=== PATIENT | female | born 1990 | race Caucasian/White ===

== ENCOUNTER → 2019-09-04 | Outpatient (CLI) | payer BC ==
--- NOTE | 2019-09-05 01:21 | REP ---
REASON: anatomy. PRIORS: None. Multiple ultrasonographic images of the gravid uterus show a single living intrauterine gestation in the cephalic presentation. Doppler interrogation of the heart shows a heart rate of 156 beats per minute. The placenta is anterior and not low lying. The subjective amniotic fluid volume is within normal limits. The cervix measures 4.3 cm in length and is closed. Evaluation of the maternal adnexal spaces shows no abnormalities. anatomical structures seen as unremarkable are as follows: Thalami, cavum septum pellucidum, cerebellum, cisterna magna, cerebral ventricles, upper lip, left ventricular outflow tract, cord insertion, three-vessel umbilical cord, spin, and upper and lower extremities. The anatomic structures suboptimally visualized are as follows: Four-chamber heart, right ventricular outflow tract, kidneys, urinary bladder, and stomach. CHART: BPD 4.0 cm = 18 weeks 1 day HC 16.1 cm = 18 weeks 6 days AC 14.2 cm = 19 weeks 4 days FL 2.8 cm = 18 weeks 3 days The estimated weight is 268 grams, which is at the 55th percentile for an 18-week 5-day gestational age. IMPRESSION: Single living intrauterine gestation, as described above, with an estimated gestational age of 18 weeks 5 days via composite criteria and an estimated date of delivery of 01/31/2020 by today's exam. No anomalies were detected; however, I recommend a followup examination to better image those structures not well seen today, as described above.
== END ==
LOC: M WHC 11:08
PROVIDERS: ATTEND Advanced Practice Midwife
DX: Z36.89 Encounter for other specified antenatal screening (principal); Z3A.18 18 weeks gestation of pregnancy

== ENCOUNTER → 2019-09-10 | Outpatient (CLI) | payer BC | LOC: M WHC 15:32 | PROVIDERS: ATTEND Advanced Practice Midwife | DX: Z53.9 Procedure and treatment not carried out, unspecified reason (principal); Z34.92 Encounter for supervision of normal pregnancy, unspecified, second trimester ==

== ENCOUNTER → 2019-09-25 | Outpatient (CLI) | payer BC ==
[~2019-09-25] MED LIST: ACET1TAB55 PO; FAMO20TA PO; FIORCAP3 PO; IBUP80TA PO; VALT500T PO
--- NOTE | 2019-09-25 11:26 | REP ---
REASON: Followup anatomy. The prior examination of 09/04/2019 failed to optimally visualize four-chamber heart, right ventricular outflow tract, kidneys, urinary bladder and stomach. Multiple ultrasonographic images of the gravid uterus shows a single living intrauterine gestation in a transverse head to the maternal left position. Doppler interrogation of the heart shows a heart rate of 143 beats per minute. The placenta is anterior and not low lying. The subjective amniotic fluid volume is within normal limits. The cervix measures 3.6 cm in length and is closed. Evaluation of the maternal adnexal spaces showed no abnormalities. BPD 5.2 cm = 21 weeks 6 days HC 19.7 cm = 21 weeks 6 days AC 16.9 cm = 21 weeks 6 days FL 3.8 cm = 22 weeks 0 days The estimated weight is 461 grams, which is at the 43rd percentile for a 96-wqcd-1-day gestational age. The stomach, kidneys, and urinary bladder were seen to be within normal limits today. The four-chamber heart and right ventricular outflow tract were still seen suboptimally due to lie. IMPRESSION: Single living intrauterine gestation as described above with an estimated gestational age of 20 weeks 4 days via composite criteria and an estimated date of delivery of 02/01/2020 by today's exam. Followup is recommended to optimally visualized four-chamber heart and right ventricular outflow tract.
== END ==
LOC: M WHC 08:09
PROVIDERS: ATTEND Advanced Practice Midwife
DX: Z34.92 Encounter for supervision of normal pregnancy, unspecified, second trimester (principal); Z3A.20 20 weeks gestation of pregnancy

== ENCOUNTER → 2019-11-16 | Outpatient (CLI) | payer BC ==
[2019-11-16 13:07] LABS: BASO % 0.2 % (0.0-1.0); EOS % 0.3 % (0.0-3.0); HEMATOCRIT 36.8 % (36.0-47.0); HEMOGLOBIN 11.8 g/dl (12.0-15.5); LYMPH # 1.3 10^3/uL (1.5-5.0); LYMPH % 11.9 % (24.0-44.0); MEAN CORPUSCULAR HEMOGLOBIN 27.9 pg (27.0-33.0); MEAN CORPUSCULAR HGB CONC 32.1 g/dl (32.0-36.5); MONO # 0.5 10^3/uL (0.0-0.8); MONO % 4.1 % (0.0-5.0); NEUTROPHILS % 82.9 % (36.0-66.0); PLATELET COUNT, AUTOMATED 235 10^3/uL (150-450); RED BLOOD COUNT 4.23 10^6/uL (4.00-5.40); WHITE BLOOD COUNT 10.9 10^3/uL (4.0-10.0)
== END ==
LOC: M PLALAB 09:09
PROVIDERS: ATTEND Advanced Practice Midwife
DX: Z34.83 Encounter for supervision of other normal pregnancy, third trimester (principal); Z3A.00 Weeks of gestation of pregnancy not specified

== ENCOUNTER → 2019-11-16 | Outpatient (CLI) | payer BC ==
--- NOTE | 2019-12-11 15:18 | REP ---
FOLLOW UP OBSTETRICAL ULTRASOUND CLINICAL: Follow up anatomical assessment. COMPARISON: 09/25/2019 TECHNIQUE: Transabdominal obstetrical ultrasound with color Doppler evaluation. FINDINGS: Ultrasound examination demonstrates single live intrauterine in breech presentation. motion was identified by technologist. Placenta noted anteriorly and grade 1 without evidence for placenta previa or abruption. Amniotic fluid volume is normal. Cervix measures 4.3 cm in length and appears closed. FINA equal 19.0 cm. heart rate 142 beats per minute. Age by current biometrical measurements 29 weeks 5 days. Estimated weight 1343 grams (28th percentile). Anatomical assessment demonstrates normal cisterna magna, cavum, thalamus, spine, stomach, kidneys/bladder, four chamber heart/cardiac ventricular outflow tract, three vessel cord/cold insertion, facial features, and extremities. IMPRESSION: Single live intrauterine in breech presentation demonstrating appropriate estimated weight and growth. In conjunction with prior examination, anatomical assessment is complete and normal. MTDD
== END ==
LOC: M WHC 08:01
PROVIDERS: ATTEND Advanced Practice Midwife
DX: O32.1XX0 Maternal care for breech presentation, not applicable or unspecified (principal); Z3A.29 29 weeks gestation of pregnancy

== ENCOUNTER → 2019-11-26 | Outpatient (CLI) | payer BC | LOC: M LAB 07:07 | PROVIDERS: ATTEND Advanced Practice Midwife | DX: Z34.82 Encounter for supervision of other normal pregnancy, second trimester (principal); Z3A.00 Weeks of gestation of pregnancy not specified ==

== ENCOUNTER → 2020-01-03 | Outpatient (REF) | payer BC ==
[~2020-01-03] MED LIST changes: -ACET1TAB55 PO; -IBUP80TA PO
== END ==
LOC: M SFHCWAGY 13:00
PROVIDERS: ATTEND Advanced Practice Midwife
DX: Z34.83 Encounter for supervision of other normal pregnancy, third trimester (principal)

== ENCOUNTER 2020-01-15 16:39 | Inpatient (IN) | payer BC ==
[~2020-01-15] VITALS: Ht 157.5 cm; Wt 100.2 kg
[2020-01-15 17:07] VITALS: BP 146/96
[2020-01-15] MEDS ORDERED: VALT500T PO (17:14)
[2020-01-15] MEDS ORDERED: FAMO20TA PO (17:14)
[2020-01-15] MEDS ORDERED: FIORCAP3 PO (17:20)
[2020-01-15 17:22] VITALS: BP 147/94
[2020-01-15] MEDS ORDERED: PERCOCET 5MG/325MG TAB PO ONE (18:00)
[2020-01-15 18:52] LABS: CREATININE,RANDOM URINE 20.4 MG/DL; TOTAL PROTEIN,RANDOM URINE 7.5 MG/DL (0.0-12.0)
[2020-01-15 19:08] LABS: HEMATOCRIT 33.8 % (36.0-47.0); HEMOGLOBIN 10.5 g/dl (12.0-15.5); MEAN CORPUSCULAR HEMOGLOBIN 25.5 pg (27.0-33.0); MEAN CORPUSCULAR HGB CONC 31.1 g/dl (32.0-36.5); PLATELET COUNT, AUTOMATED 210 10^3/uL (150-450); RED BLOOD COUNT 4.12 10^6/uL (4.00-5.40); WHITE BLOOD COUNT 9.5 10^3/uL (4.0-10.0)
[2020-01-15 19:35] LABS: ALT/SGPT 14 U/L (12-78); BILIRUBIN,TOTAL 0.6 MG/DL (0.2-1.0); GLOMERULAR FILTRATION RATE > 60.0 (>60); LDH LACTATE DEHYDROGENASE 182 U/L (84-246); URIC ACID 4.6 MG/DL (2.6-6.0)
[2020-01-15 20:17] VITALS: BP 126/82
--- NOTE | 2020-01-15 20:25 | HPEPDOC ---
Obstetrical History & Physical General Date of Admission Jan 15, 2020 at 17:50 History of Present Illness 29yo at 38w0d presents to L&D with elevated BP and headache. Had elevated BP at home and at OB office. Denies visual changes, abd pain, ctx, LOF or vaginal bleeding. Reports active movement. Chief Complaint: Pre-eclamsia, Induction of labor Information Provided By: Patient Age: 29 : 9 Livin Care Care: Good Care Dating Final EDC: Jan 29, 2020 Final EDC by: LMP EGA at Admission: 38 Past Medical History Past Obstetrical History #1: Past Obstetrical History: Primgravida Date of Delivery: Oct 24, 2012 Gestation: 40 Type of Delivery: Spontaneous Vaginal Del. Sex of : Male Past Obstetrical History #2: Past Obstetrical History: Multigravida Date of Delivery: Sep 22, 2013 Gestation: 40 Type of Delivery: Spontaneous Vaginal Del. Sex of Infant: Male Complications: No Past Obstetrical History #3: Past Obstetrical History: Multigravida Date of Delivery: Apr 11, 2015 Gestation: 40 Type of Delivery: Spontaneous Vaginal Del. Sex of Infant: Male Complications: No Past Obstetrical History #4: Past Obstetrical History: Multigravida Date of Delivery: Oct 06, 2017 Gestation: 40 Type of Delivery: Spontaneous Vaginal Del. 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 simplex virus(HSV) Past Medical History Surgical History: Appendectomy, Tonsilectomy Social History Psychosocial History: No pertinent psych hx * Smoker: former Smoker Alcohol: Denies Drugs: denies Allergies Coded Allergies: sertraline (Verified Allergy, Unknown, Hypermania, 01/15/20) Medications Scheduled Famotidine (Famotidine) 20 Mg Tablet, 20 MG PO DAILY Valacyclovir HCl (Valtrex) 500 Mg Tablet, 500 MG PO DAILY Scheduled PRN Butalbital/Aspirin/Caffeine (Fiorinal 50-325-40 mg Capsule) 1 Each Capsule, 1 CAP PO PRN PRN for HEADACHE Physical Examination Physical Examination GENERAL: Alert and oriented times three. BREAST: . ABDOMEN: Gravid and non-tender to touch. FETUS: Is vertex (VTX) by sterile vaginal examination (SVE), fetus is vertex (VTX) by Markel. HEART RATE: Regular rate and rhythm. LUNGS: Clear to auscultation (CTA). Vital Signs/I&O Vital Signs Date Time Temp Pulse Resp B/P (MAP) Pulse Ox O2 Delivery O2 Flow Rate FiO2 01/15/20 19:13 18 Room Air 01/15/20 17:22 99.8 105 147/94 (111) Laboratory Data 24H LABS Laboratory Tests 2 01/15/20 18:21: Urine Random Creatinine 20.4, Urine Random Total Protein 7.5 01/15/20 18:58: Nucleated Red Blood Cells % (auto) 0.0, Glomerular Filtration Rate > 60.0, Uric Acid 4.6, Total Bilirubin 0.6, Aspartate Amino Transf (AST/SGOT) 12, Alanine Aminotransferase (ALT/SGPT) 14, Lactate Dehydrogenase 182, Syphilis Serology NONREACTIVE, Hepatitis B Surface Antigen NEGATIVEL CBC/BMP Laboratory Tests 01/15/20 18:58 Pertinent Laboratoy Data Blood Type: A+ RBC Antibody Screen: Negative Hepatitis B: Negative Rapid Plasma Reagin: Nonreactive Group B Streptococcus: Negative ( ) Vaginal Examination Dilation: 1cm Effacement: 50% Station: -3 Assessment Variability: Moderate Accelerations: Positive Tocometer Contractions: No Assessment/Plan Assessment 29yo at 38w0d with preeclampsia, currently stable. Headache improved Reassuring status - Preeclamptic panel, CBC and pot urine. Patient and thoroughly counseled regards to her diagnosis and recommendations induction labor Plan Admit and orient. 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 Diet: Regular. Group B Streptococcus (GBS) negative. Labs and intravenous (IV) per unit protocol. Counseled on Pitocin and induction of labor (IOL). Anticipate normal spontaneous delivery (). C-S as appropriate. JI MONROE MD. Jan 15, 2020 20:25
[2020-01-15] MEDS ORDERED: BUTORPHANOL 2 MG/ML INJ (J0595) IV ONE (20:30)
[2020-01-15] MEDS ORDERED: PROMETHAZINE INJ 25 MG/ML VIAL (J2550) IV PRN (20:30)
[2020-01-15 22:59] VITALS: BP 142/71
[2020-01-16] VITALS (16 sets, daily range): BP systolic 118–154; BP diastolic 62–92
[2020-01-16] MEDS: miSOPROStol 50 MCG 1/2 TAB (S0191) PO SCH ×2 (01:13→06:06)
--- NOTE | 2020-01-16 08:40 | IPNPDOC ---
Obstetrical Progress Note Date of Service Jan 16, 2020 Subjective Patient starting to feel more intense contractions. Reports active movement. Denies LOF, vaginal bleeding. Denies visual changes, epigastric pain, nausea. Reports mild headache. Objective Vital Signs Date Time Temp Pulse Resp B/P (MAP) Pulse Ox O2 Delivery O2 Flow Rate FiO2 01/16/20 05:01 97.6 83 135/78 (97) 01/15/20 19:13 18 Room Air Assessment Heart Rate (FHR): 125 Variability: Moderate Accelerations: Positive Decelerations: None Heart Rate Tracing: Category I Tocometer Contractions: Yes Frequency: irregular, every 1-5 min. Duration: greater than 60 seconds Strength: palpated as moderate, resting tone palp/soft Assessment and Plan Age: 29 : 9 Term: 4 Pre-term: 0 Abortions: 4 Livin EGA at Admission: 38.1 Status: Reassuring Group B Streptococcus: Negative Anticipate: Vaginal Delivery Additional Comments Regular breakfast this morning, per patient request. Start Pitocin at 1000. KALEN CORDON CNM Jan 16, 2020 08:40
[2020-01-16] MEDS ORDERED: LR 1,000 ML IV SCH ×2 (10:35→17:28)
[2020-01-16] MEDS ORDERED: OXYTOCIN DRIP 30 UNITS in IV 1 EA IV SCH ×3 (10:45→22:12)
[2020-01-16] MEDS ORDERED: miSOPROStol 50 MCG 1/2 TAB (S0191) PO ONE (12:30)
[2020-01-16] MEDS ORDERED: CALCIUM CARBONATE 500 MG CHEW U/D PO ONE (15:00)
[2020-01-16] MEDS ORDERED: FAMOTIDINE 20 MG TAB PO ONE (15:00)
--- NOTE | 2020-01-16 15:00 | IPNPDOC ---
Obstetrical Progress Note Date of Service Jan 16, 2020 Subjective Reports contractions that are becoming more painful and active movement. Denies LOF, bloody show. Reports heartburn, orders for Pepcid. Objective Vital Signs Date Time Temp Pulse Resp B/P (MAP) Pulse Ox O2 Delivery O2 Flow Rate FiO2 01/16/20 12:50 98.0 93 20 133/80 (97) 01/15/20 19:13 Room Air Assessment Heart Rate (FHR): 130 Variability: Increased Accelerations: Positive Decelerations: None Heart Rate Tracing: Category I Tocometer Contractions: Yes Frequency: regular, every 2-5 min. Duration: greater than 60 seconds Strength: palpated as mild, resting tone palp/soft Sterile Vaginal Examination Dilation: 3 cm Effacement (%): 70% (75) Station: -2 Cervical Consistency: Soft Cervical Position: Posterior Postion/Presentation: Cephalic presentation Assessment and Plan Age: 29 : 9 Term: 4 Pre-term: 0 Abortions: 4 Livin EGA at Admission: 38.1 Status: Reassuring Group B Streptococcus: Negative Anticipate: Vaginal Delivery Additional Comments Cervical catheter placed with 80mL NS in uterine balloon, to tension on leg. Continue with frequent position changes and activity Ad marin. KALEN CORDON CNM Jan 16, 2020 15:00
--- NOTE | 2020-01-16 17:42 | IPNPDOC ---
Obstetrical Progress Note Date of Service Jan 16, 2020 Subjective Patient reports she is uncomfortable with her contractions. Yu bulb has fallen out. Objective Vital Signs Date Time Temp Pulse Resp B/P (MAP) Pulse Ox O2 Delivery O2 Flow Rate FiO2 01/16/20 16:15 98.1 81 18 125/79 (94) 01/16/20 15:02 Room Air Assessment Heart Rate (FHR): 120 Variability: Moderate Accelerations: Positive Decelerations: None Heart Rate Tracing: Category I Tocometer Contractions: Yes Sterile Vaginal Examination Dilation: 5 cm Effacement (%): other (75%) Station: -2 Cervical Consistency: Soft Cervical Position: Anterior Postion/Presentation: Cephalic presentation Assessment and Plan Age: 29 : 9 Livin EGA at Admission: 38 Status: Reassuring Group B Streptococcus: Negative Anticipate: Vaginal Delivery Additional Comments Attempt at AROM but head is ballatable with hand presenting over head. Reviewed plan to start IV Pitocin and attempt AROM in a few hours. KALEN CORDON CNM Jan 16, 2020 17:42
--- NOTE | 2020-01-16 20:06 | IPNPDOC ---
Obstetrical Progress Note Date of Service Jan 16, 2020 Subjective Reports pain increasing with contractions, some bloody show, and active fetus. Denies LOF. Objective Vital Signs Date Time Temp Pulse Resp B/P (MAP) Pulse Ox O2 Delivery O2 Flow Rate FiO2 01/16/20 18:20 73 20 148/92 (110) 01/16/20 17:07 98.7 01/16/20 15:02 Room Air Assessment Heart Rate (FHR): 125 Variability: Moderate Accelerations: Positive Decelerations: None Heart Rate Tracing: Category I Tocometer Contractions: Yes Frequency: regular, every 2-5 min. Duration: greater than 60 seconds Strength: palpated as moderate, resting tone palp/soft Sterile Vaginal Examination Dilation: 6 cm Effacement (%): other (75) Station: -2 Cervical Consistency: Soft Cervical Position: Middle Postion/Presentation: Cephalic presentation Assessment and Plan Age: 29 : 9 Term: 4 Pre-term: 0 Abortions: 4 Livin EGA at Admission: 38.1 Status: Reassuring Group B Streptococcus: Negative Anticipate: Vaginal Delivery Additional Comments Pitocin currently at 8mu/min. SVE with informed consent, spoke with patient about AROM including risk, benefits, and alternatives. Patient decided not to do AROM at this time. Plan to continue with Pitocin and continuous EFM. OOB ad marin. KALEN CORDON CNM Jan 16, 2020 20:06
[2020-01-16] MEDS ORDERED: PROMETHAZINE INJ 25 MG/ML VIAL (J2550) IV ONE (20:30)
[2020-01-16] MEDS ORDERED: BUTORPHANOL 2 MG/ML INJ (J0595) IV ONE (20:30)
--- NOTE | 2020-01-16 21:10 | IPNPDOC ---
Obstetrical Progress Note Date of Service Jan 16, 2020 Subjective Patient reports SROM, and increasing contraction intensity. Feeling some effect from Stadol and Phenergan between contractions. Objective Pelvic: SVE 8/100/-2, anterior, soft, forebag felt, moderate amount of clear fluid on bed, small amount of bloody show on bed and gloves. Vital Signs Date Time Temp Pulse Resp B/P (MAP) Pulse Ox O2 Delivery O2 Flow Rate FiO2 01/16/20 20:35 18 01/16/20 18:20 73 148/92 (110) 01/16/20 17:07 98.7 01/16/20 15:02 Room Air Assessment Heart Rate (FHR): 120 Variability: Moderate Accelerations: Positive Decelerations: None Heart Rate Tracing: Category I Tocometer Contractions: Yes Frequency: regular, other (1-2) Duration: greater than 60 seconds Strength: palpated as strong, resting tone palp/soft Sterile Vaginal Examination Dilation: 8 cm Effacement (%): 100% Station: -2 Cervical Consistency: Soft Cervical Position: Anterior Postion/Presentation: Cephalic presentation Assessment and Plan Age: 29 : 9 Term: 4 Pre-term: 0 Abortions: 4 Livin EGA at Admission: 38.1 Status: Reassuring Group B Streptococcus: Negative Anticipate: Vaginal Delivery Additional Comments Continue with Pitocin and continuous EFM. KALEN CORDON CNM Jan 16, 2020 21:10
[2020-01-16] MEDS ORDERED: DOCUSATE SODIUM 100 MG CAP PO PRN (22:15)
[2020-01-16] MEDS ORDERED: ANUSOL HC CREAM 30GM TOP PRN (22:15)
[2020-01-16] MEDS ORDERED: DIBUCAINE 1% OINTMENT 30GM TOP PRN (22:15)
[2020-01-16] MEDS ORDERED: IBUPROFEN 600MG TAB PO PRN (22:15)
[2020-01-16] MEDS ORDERED: ACETAMINOPHEN TAB 650MG DOSE (2X325MG) PO PRN (22:15)
[2020-01-16] MEDS ORDERED: RHOGAM 300 MCG (1500 IU) INJ (J2790) IM SCH (22:15)
[2020-01-16] MEDS ORDERED: MEASLES,MUMPS,RUBELLA VACCINE INJ (MMR-II) (90707) SC SCH (22:15)
[2020-01-16] MEDS ORDERED: METHYLERGONOVINE MALEATE 0.2 MG TAB PO PRN (22:15)
--- NOTE | 2020-01-16 23:18 | DNPDOC ---
[facility] Delivery Note Delivery Note DATE OF DELIVERY: 01/16/20 @ 2143 PREDELIVERY DIAGNOSIS: 38-1/7 weeks' gestation POST DELIVERY DIAGNOSIS: Delivered. PROCEDURE: Spontaneous vaginal delivery. MERRY GO ROUND OPERATOR: Kalen Mera CNM, ANGI/ PRIETO Leija ANESTHESIA: None. ESTIMATED BLOOD LOSS: 400 mL. FINDINGS: 7pound 4ounce, 3280g. Male infant, Score 8/9, nuchal cord times x1, Preeclampsia. DELIVERY SUMMARY: Patient is a 29-year-old 9 now para 5-0-4-5 who was admitted to labor and delivery for Preeclampsia. She received 4 doses of Cytotec, followed by cervical catheter and IV Pitocin. Stadol and Phenergan at 2035 for pain relief. SROM at 2054 for moderate amount of clear fluid, then AROM forebag at 2126 for large amount of clear fluid mixed with bloody show. She reached full dilation at 2141 and began pushing. head delivered easily in OA position with restitution to LOT. The anterior shoulder and corpus followed quickly after. Nuchal cord x1 that was reduced after delivery of viable Male infant. was placed skin to skin on maternal abdomen active and crying with stimulation. Delayed cord clamping until pulsations stopped, clamped x2 and cut by SNM, FOB and Mother declined. A 3-vessel cord was noted. Intact placenta delivered spontaneously at 2146, with moderate amount of clots following. Fundal massage and IV Pitocin bolus started, fundus firmed quickly at Umbilicus with minimal rubra lochia. Vagina, cervix, and perineum examined for lacerations. A left labial abrasion noted to be hemostatic, no repair needed. All counts of instruments and sponges are correct. Parents plan to name "Enrico" and breastfeed. Mother and infant left in stable condition. KALEN MERA CNM Jan 16, 2020 22:19
[2020-01-17 06:00] VITALS: BP 138/60
[2020-01-17] MEDS: ACETAMINOPHEN 500 MG TAB PO PRN ×2 (06:18→13:06)
--- NOTE | 2020-01-17 07:05 | IPNPDOC ---
Progress Note Date of Service: Jan 17, 2020 Day#: 1 Progress Note SUBJECT: Anupama is a 29-year-old 9 now Para 5-0-4-5 status post uncompl icated spontaneous vaginal delivery with left labial abrasion, doing well day # 1. She has been ambulating, voiding spontaneously and passing flatus without issue and tolerating regular diet. Breast feeding without issue. Reports lochia is like a normal period. Reports some cramping with . Pain controlled well with Tylenol. OBJECTIVE: VITAL SIGNS: Within normal limits, afebrile. Alert and oriented times three. Respiratory: Regular rhythm, no accessory muscle use Abdomen: Fundus firm at U. Soft, NTTP. Moderate rubra, lochia. ASSESSMENT: Day 1 PLAN: 1. Discharge home tomorrow morning. 2. Tylenol and Motrin for pain. 3. Encourage breast feeding and ambulation. 4. Routine PP visit in 6 weeks in clinic. VS, I&O, 24H, Fishbone Vital Signs/I&O Vital Signs Date Time Temp Pulse Resp B/P (MAP) Pulse Ox O2 Delivery O2 Flow Rate FiO2 01/17/20 06:00 98.2 95 18 138/60 (86) 98 Room Air I&O- Last 24 Hours up to 6 AM 01/17/20 06:00 Intake Total 670 ml Output Total 750 ml Balance -80 ml KALEN CORDON CNM Jan 17, 2020 07:05
[2020-01-17] MEDS: PRENATAL VITAMINS CHEWABLE TABLET PO SCH (08:01)
[2020-01-17] MEDS: IBUPROFEN 800 MG TAB PO PRN ×2 (08:11→15:42)
[2020-01-17 17:53] VITALS: BP 147/91
[2020-01-17 21:07] VITALS: BP 154/90
[2020-01-18 00:39] VITALS: BP 140/83
[2020-01-18 06:00] VITALS: BP 148/85
[2020-01-18] MEDS ORDERED: IBUP80TA PO (06:25)
[2020-01-18] MEDS ORDERED: ACET1TAB55 PO (06:25)
[2020-01-18] MEDS: PRENATAL VITAMINS CHEWABLE TABLET PO SCH (09:19)
[2020-01-18] MEDS: IBUPROFEN 800 MG TAB PO PRN (09:19)
[2020-01-18 12:06] VITALS: BP 39/90
[2020-01-18] MEDS: ACETAMINOPHEN 500 MG TAB PO PRN (12:06)
[2020-01-18 12:35] LABS: HEMATOCRIT 28.6 % (36.0-47.0); HEMOGLOBIN 8.9 g/dl (12.0-15.5); MEAN CORPUSCULAR HEMOGLOBIN 25.8 pg (27.0-33.0); MEAN CORPUSCULAR HGB CONC 31.1 g/dl (32.0-36.5); MEAN CORPUSCULAR VOLUME 82.9 fl (80.0-96.0); PLATELET COUNT, AUTOMATED 189 10^3/uL (150-450); RED BLOOD COUNT 3.45 10^6/uL (4.00-5.40); WHITE BLOOD COUNT 10.4 10^3/uL (4.0-10.0)
[2020-01-18 13:09] LABS: ALT/SGPT 14 U/L (12-78); BILIRUBIN,TOTAL 0.3 MG/DL (0.2-1.0); CREATININE FOR GFR 0.88 MG/DL (0.55-1.30); GLOMERULAR FILTRATION RATE > 60.0 (>60); LDH LACTATE DEHYDROGENASE 212 U/L (84-246)
== END 2020-01-18 13:55 | disposition home or self-care (01) | DRG 560 ==
LOC: M LDO 16:39 → M LDI 17:50 → M OBS 01-16 23:38
PROVIDERS: ADMIT Obstetrics & Gynecology; ATTEND Obstetrics & Gynecology
PROC: 3E0DXGC Introduction of Other Therapeutic Substance into Mouth and Pharynx, External Approach (ICD-10-PCS; 2020-01-15)
PROC: F13Z0ZZ Hearing Screening Assessment (ICD-10-PCS; 2020-01-15)
PROC: 10E0XZZ Delivery of Products of Conception, External Approach (ICD-10-PCS; principal; 2020-01-16)
DX: O14.94 Unspecified pre-eclampsia, complicating childbirth (principal); O69.81X0 Labor and delivery complicated by cord around neck, without compression, not applicable or unspecified; Z37.0 Single live birth; Z3A.38 38 weeks gestation of pregnancy; Z88.8 Allergy status to other drugs, medicaments and biological substances

== ENCOUNTER → 2020-06-13 | Outpatient (CLI) | payer BC ==
[~2020-06-13] MED LIST changes: +ACET1TAB55 PO; +IBUP80TA PO
== END ==
LOC: M LAB 15:32
PROVIDERS: ATTEND Advanced Practice Midwife
DX: O26.851 Spotting complicating pregnancy, first trimester (principal); Z3A.00 Weeks of gestation of pregnancy not specified

== ENCOUNTER → 2020-06-15 | Outpatient (CLI) | payer BC | LOC: M LAB 14:52 | PROVIDERS: ATTEND Advanced Practice Midwife | DX: O26.851 Spotting complicating pregnancy, first trimester (principal); Z3A.00 Weeks of gestation of pregnancy not specified ==

== ENCOUNTER → 2020-08-25 | Outpatient (CLI) | payer BC | LOC: M LAB 14:30 | PROVIDERS: ATTEND Advanced Practice Midwife | DX: N92.6 Irregular menstruation, unspecified (principal) ==

== ENCOUNTER → 2020-09-16 | Outpatient (CLI) | payer BC ==
--- NOTE | 2020-09-16 08:59 | REP ---
INDICATION: N92.6 IRREGULAR MENSES. COMPARISON: None. TECHNIQUE: Transabdominal and transvaginal scanning performed. FINDINGS: Uterine dimensions are 9.5 x 4.5 x 5.7 cm. Endometrial echo is 13 mm in AP dimension and centrally placed. There is anterior bulging of the endometrial echo complex. There is irregularity and poor definition of the junctional zone. This could indicate adenomyosis. Mild complex fluid is seen in the endometrial cavity. The bladder measures 6.2 x 2.8 x 7.5cm. The right ovary has dimensions of 4.7 x 1.8 x 3.3 cm. It's Doppler flow is normal with a resistive index of 0.42. There is a complex dominant follicle in the right ovary 1.2 cm in diameter. The left ovary dimensions are 2.9 x 1.4 x 3.7 cm. It's Doppler flow is normal with a resistive index of0.51. There is no adnexal mass identified. No free fluid is seen in the cul-de-sac. IMPRESSION: Anterior bulging of the endometrial echo complex with irregularity and poor definition of the junctional zone, possibly indicating adenomyosis. There is mild complex fluid in the endometrial cavity. <Electronically signed by Ryan Singh > 09/16/20 [id number]
== END ==
LOC: M WHC 08:05
PROVIDERS: ATTEND Advanced Practice Midwife
DX: N92.6 Irregular menstruation, unspecified (principal)

== ENCOUNTER → 2020-09-25 | Outpatient (REF) | payer BC | LOC: M SFHCWAGY 10:57 | PROVIDERS: ATTEND Advanced Practice Midwife | DX: Z12.4 Encounter for screening for malignant neoplasm of cervix (principal); Z77.9 Other contact with and (suspected) exposures hazardous to health ==

== ENCOUNTER 2020-11-08 12:16 | Emergency (ER) | payer BC ==
[~2020-11-08] VITALS: Ht 157.5 cm; Wt 82.9 kg
[2020-11-08] MEDS ORDERED: VENL150C43 (12:33)
[2020-11-08] MEDS ORDERED: ONDANSETRON 4MG/2ML VIAL IV ONE (13:40)
[2020-11-08] MEDS ORDERED: NS 1,000 ML IV ONE (13:40)
[2020-11-08] MEDS ORDERED: KETOROLAC 30 MG/ML 1ML VIAL IV ONE (13:40)
[2020-11-08 14:17] LABS: BASO % 0.1 % (0.0-1.0); EOS % 0.3 % (0.0-3.0); HEMATOCRIT 44.3 % (36.0-47.0); HEMOGLOBIN 14.6 g/dl (12.0-15.5); LYMPH # 1.8 10^3/uL (1.5-5.0); LYMPH % 20.4 % (24.0-44.0); MEAN CORPUSCULAR HEMOGLOBIN 28.6 pg (27.0-33.0); MEAN CORPUSCULAR VOLUME 86.7 fl (80.0-96.0); MONO # 0.5 10^3/uL (0.0-0.8); MONO % 5.9 % (2.0-8.0); NEUTROPHILS # 6.5 10^3/uL (1.5-8.5); PLATELET COUNT, AUTOMATED 261 10^3/uL (150-450); RED BLOOD COUNT 5.11 10^6/uL (4.00-5.40); WHITE BLOOD COUNT 8.9 10^3/uL (4.0-10.0)
--- NOTE | 2020-11-08 14:46 | REP ---
INDICATION: severe headache/neck pain COMPARISON: None. TECHNIQUE: Axial noncontrast images from the skull base to the vertex with coronal reformations. This CT examination was performed using the following dose reduction techniques: Automated exposure control, adjustment of mA and/or kv according to the patient's size, and use of iterative reconstruction technique. FINDINGS: The ventricles, sulci, and cisterns are normal in position and appearance. Singh-white differentiation is maintained. No acute intracranial hemorrhage, mass/mass effect, pathology or trauma/injury. No evidence for acute infarction. No extra-axial fluid collection. Calvarium is intact. Few bilateral maxillary mucoceles are identified measuring up to 10 mm. IMPRESSION: Essentially normal noncontrast head CT. No evidence for acute intracranial pathology or trauma/injury. <Electronically signed by Broderick Hercules > 11/08/20 [id number]
[2020-11-08 14:51] LABS: ALBUMIN 3.8 GM/DL (3.2-5.2); ALT/SGPT 24 U/L (12-78); BILIRUBIN,DIRECT 0.1 MG/DL (0.0-0.2); BILIRUBIN,TOTAL 0.7 MG/DL (0.2-1.0); BLOOD UREA NITROGEN 11 MG/DL (7-18); CALCIUM LEVEL 8.9 MG/DL (8.5-10.1); CARBON DIOXIDE LEVEL 24 MEQ/L (21-32); CHLORIDE LEVEL 109 MEQ/L (98-107); CK-MB VALUE MASS < 1.0 NG/ML (<3.6); CPK CREATINE PHOSPHOKINASE 81 U/L (26-192); CREATININE FOR GFR 0.85 MG/DL (0.55-1.30); FREE T4 0.88 NG/DL (0.76-1.46); GLOMERULAR FILTRATION RATE > 60.0 (>60); GLUCOSE, FASTING 80 MG/DL (70-100); MAGNESIUM LEVEL 2.2 MG/DL (1.8-2.4); MB/CK RELATIVE INDEX 1.23 (< OR =4); POTASSIUM SERUM 4.3 MEQ/L (3.5-5.1); SODIUM LEVEL 139 MEQ/L (136-145); TOTAL PROTEIN 7.8 GM/DL (6.4-8.2); TROPONIN I < 0.02 NG/ML (< 0.10)
--- NOTE | 2020-11-08 14:52 | REP ---
INDICATION: severe headache/neck pain COMPARISON: None. TECHNIQUE: Axial noncontrast images from the skull base to the thoracic inlet with coronal and sagittal re-formations This CT examination was performed using the following dose reduction techniques: Automated exposure control, adjustment of mA and/or kv according to the patient's size, and use of iterative reconstruction technique. FINDINGS: Straightening of normal lordosis is nonspecific. Vertebral bodies demonstrate normal alignment and there is no evidence for acute fracture/compression injury or subluxation. No obvious significant degenerative changes are appreciated. The neural foramen appear patent. The posterior elements and spinous processes are intact. The spinal canal is patent and within normal limits. The surrounding soft tissues are unremarkable. IMPRESSION: Essentially normal age-appropriate cervical spine CT examination. <Electronically signed by Broderick Hercules > 11/08/20 [id number]
[2020-11-08] MEDS ORDERED: CYCL5TAB PO (16:11)
[2020-11-08 16:29] VITALS: BP 137/84
== END 2020-11-08 16:37 | disposition home or self-care (01) ==
LOC: M ED 12:16
DX: G44.209 Tension-type headache, unspecified, not intractable (principal); F41.9 Anxiety disorder, unspecified; Z79.899 Other long term (current) drug therapy
CPT/HCPCS: 70450; 72125; 80048; 80076; 82550; 82553; 83735; 84439; 84443; 84702; 85025; 96361; 96374; 96375; 99284; J1885; J2405

== ENCOUNTER → 2021-04-22 | Outpatient (REF) | payer OTHER ==
[~2021-04-22] MED LIST changes: +CYCL5TAB PO; +VENL150C43
== END ==
LOC: M SFHCWAGY 16:50
PROVIDERS: ATTEND Advanced Practice Midwife
DX: R10.2 Pelvic and perineal pain (principal)

== ENCOUNTER → 2021-04-22 | Outpatient (CLI) | payer OTHER ==
[2021-04-22 16:25] LABS: FREE T4 0.88 NG/DL (0.76-1.46); HCG, SERUM QUANTITATIVE < 1.0 MIU/ML
[2021-04-22 20:39] LABS: HEMOGLOBIN A1c 5.2 %
== END ==
LOC: M PLALAB 14:14
PROVIDERS: ATTEND Advanced Practice Midwife
DX: R10.2 Pelvic and perineal pain (principal); R63.5 Abnormal weight gain

== ENCOUNTER 2021-09-08 08:18 | Emergency (ER) | payer OTHER, SELFPAY ==
[~2021-09-08] VITALS: Ht 157.5 cm; Wt 91.2 kg
[2021-09-08 08:18] VITALS: BP 124/86
[2021-09-08] MEDS ORDERED: NEOM1SOL13 (08:28)
[2021-09-08] MEDS ORDERED: VENL37.598 (08:28)
[2021-09-08] MEDS ORDERED: IBUP200C28 PO (08:37)
[2021-09-08] MEDS ORDERED: CIPROFLOXACIN 500MG TABLET PO ONE (09:10)
[2021-09-08] MEDS ORDERED: predniSONE 20 MG TAB PO ONE (09:10)
[2021-09-08] MEDS ORDERED: NORCO, ANEXSIA 5/325MG TABLET (HYDROcodone/ACETAMINOPHEN) PO ONE (09:10)
[2021-09-08] MEDS ORDERED: CIPR7.5D5 OTIC (09:12)
[2021-09-08] MEDS ORDERED: CIPR-249 PO (09:12)
== END 2021-09-08 09:32 | disposition home or self-care (01) ==
LOC: M ED 08:18
DX: H60.312 Diffuse otitis externa, left ear (principal); G43.909 Migraine, unspecified, not intractable, without status migrainosus; F41.9 Anxiety disorder, unspecified; Z88.8 Allergy status to other drugs, medicaments and biological substances; Z79.899 Other long term (current) drug therapy
CPT/HCPCS: 99282; J7512

== ENCOUNTER → 2022-03-17 | Outpatient (REF) | payer OTHER ==
[~2022-03-17] MED LIST changes: +CIPR-249 PO; +CIPR7.5D5 OTIC; +IBUP200C28 PO; +NEOM1SOL13; +VENL37.598
[2022-03-17 13:38] LABS: HEMATOCRIT 42.1 % (36.0-47.0); HEMOGLOBIN 13.3 g/dl (12.0-15.5); MEAN CORPUSCULAR HEMOGLOBIN 27.4 pg (27.0-33.0); MEAN CORPUSCULAR HGB CONC 31.6 g/dl (32.0-36.5); MEAN CORPUSCULAR VOLUME 86.6 fl (80.0-96.0); PLATELET COUNT, AUTOMATED 255 10^3/uL (150-450); RED BLOOD COUNT 4.86 10^6/uL (4.00-5.40); WHITE BLOOD COUNT 6.8 10^3/uL (4.0-10.0)
[2022-03-17 14:07] LABS: THYROID STIMULATING HORMONE 1.437 uIU/ML (0.55-4.78)
[2022-03-17 14:10] LABS: FREE T4 0.89 NG/DL (0.89-1.76)
[2022-03-17 14:21] LABS: ALBUMIN 3.7 G/DL (3.2-5.2); ALKALINE PHOSPHATASE 71 U/L (46-116); ALT/SGPT 15 U/L (7.0-40); AST/SGOT 20 U/L (<34); BILIRUBIN,TOTAL 0.4 MG/DL (0.3-1.2); BLOOD UREA NITROGEN 9 MG/DL (9-23); CARBON DIOXIDE LEVEL 26 MMOL/L (20-31); CHLORIDE LEVEL 105 MMOL/L (98-107); CREATININE FOR GFR 0.75 MG/DL (0.55-1.30); GLOMERULAR FILTRATION RATE > 60.0 (>60); GLUCOSE, FASTING 79 MG/DL (60-100); POTASSIUM SERUM 4.3 MMOL/L (3.5-5.1); SODIUM LEVEL 141 MMOL/L (136-145); TOTAL PROTEIN 7.1 G/DL (5.7-8.2)
== END ==
LOC: M SFHCADAM 08:21
PROVIDERS: ATTEND Physician Assistant
DX: I10 Essential (primary) hypertension (principal); R00.0 Tachycardia, unspecified; F41.1 Generalized anxiety disorder

== ENCOUNTER 2022-10-14 10:05 | Emergency (ER) | payer OTHER ==
[~2022-10-14] VITALS: Ht 157.5 cm; Wt 80.3 kg
[2022-10-14] MEDS ORDERED: AMOX500C (10:22)
[2022-10-14] MEDS ORDERED: PROP10TA56 (10:22)
[2022-10-14] MEDS ORDERED: ACET-683 (10:22)
[2022-10-14] MEDS ORDERED: PRED20TA (10:22)
[2022-10-14] MEDS ORDERED: RIME75TA (10:22)
[2022-10-14 11:40] LABS: BASO % 0.3 % (0.0-1.0); EOS # 0.2 10^3/uL (0.0-0.5); EOS % 2.5 % (0.0-3.0); HEMATOCRIT 43.6 % (36.0-47.0); HEMOGLOBIN 14.3 g/dl (12.0-15.5); LYMPH # 1.2 10^3/uL (1.5-5.0); LYMPH % 12.1 % (24.0-44.0); MEAN CORPUSCULAR HEMOGLOBIN 27.8 pg (27.0-33.0); MEAN CORPUSCULAR HGB CONC 32.8 g/dl (32.0-36.5); MEAN CORPUSCULAR VOLUME 84.7 fl (80.0-96.0); MONO # 0.4 10^3/uL (0.0-0.8); MONO % 4.5 % (2.0-8.0); NEUTROPHILS # 7.7 10^3/uL (1.5-8.5); NEUTROPHILS % 80.2 % (36.0-66.0); PLATELET COUNT, AUTOMATED 280 10^3/uL (150-450); RED BLOOD COUNT 5.15 10^6/uL (4.00-5.40); WHITE BLOOD COUNT 9.6 10^3/uL (4.0-10.0)
[2022-10-14] MEDS ORDERED: NS 1,000 ML IV ONE (11:40)
[2022-10-14] MEDS ORDERED: fentaNYL 100 MCG/2 ML INJECTION IV ONE (11:40)
[2022-10-14] MEDS ORDERED: PROPRANOLOL 10 MG TAB PO ONE (11:40)
[2022-10-14] MEDS ORDERED: ONDANSETRON 4MG 2ML VIAL IV ONE (11:40)
[2022-10-14 12:09] LABS: LIPASE 28 U/L (12-53)
[2022-10-14 12:10] LABS: BLOOD UREA NITROGEN 9 MG/DL (9-23); CALCIUM LEVEL 9.2 MG/DL (8.5-10.1); CARBON DIOXIDE LEVEL 26 MMOL/L (20-31); CHLORIDE LEVEL 106 MMOL/L (98-107); CREATININE FOR GFR 0.76 MG/DL (0.55-1.30); GLOMERULAR FILTRATION RATE > 60.0 (>60); GLUCOSE, FASTING 80 MG/DL (60-100); SODIUM LEVEL 142 MMOL/L (136-145)
[2022-10-14 12:11] LABS: ALKALINE PHOSPHATASE 82 U/L (46-116); ALT/SGPT 33 U/L (7.0-40); AST/SGOT 22 U/L (<34); BILIRUBIN,DIRECT 0.3 MG/DL (<0.4); BILIRUBIN,TOTAL 0.9 MG/DL (0.3-1.2); CK-MB VALUE MASS < 1.0 NG/ML (<3.6); TOTAL PROTEIN 7.5 G/DL (5.7-8.2)
[2022-10-14 12:15] LABS: FREE T4 1.01 NG/DL (0.89-1.76)
[2022-10-14 12:16] VITALS: TEMP 99.4
[2022-10-14 12:24] LABS: ERYTHROCYTE SEDIMENTATION RATE 52 mm/hr (0-20)
[2022-10-14 12:25] LABS: CPK CREATINE PHOSPHOKINASE 47 U/L (34-145); MB/CK RELATIVE INDEX 2.12 (< OR =4)
[2022-10-14] MEDS ORDERED: ACET-716 PO (13:30)
[2022-10-14 13:47] VITALS: O2SAT 98
[2022-10-14 14:05] VITALS: BP 122/69
== END 2022-10-14 14:07 | disposition home or self-care (01) ==
LOC: M ED 10:05
DX: R07.9 Chest pain, unspecified (principal); F41.9 Anxiety disorder, unspecified; K08.89 Other specified disorders of teeth and supporting structures; I10 Essential (primary) hypertension; G43.909 Migraine, unspecified, not intractable, without status migrainosus; F32.A Depression, unspecified; Z88.5 Allergy status to narcotic agent; Z88.8 Allergy status to other drugs, medicaments and biological substances; Z79.2 Long term (current) use of antibiotics; Z79.899 Other long term (current) drug therapy
CPT/HCPCS: 71046; 80047; 80048; 80076; 82550; 82553; 83605; 83690; 83880; 84439; 84443; 84702; 85025; 85379; 85652; 86140; 87486; 87581; 87633; 87798; 93005; 96361; 96374; 96375; 99284; J2405; J3010

== ENCOUNTER 2022-10-23 12:57 | Emergency (ER) | payer OTHER ==
[~2022-10-23] VITALS: Ht 157.5 cm; Wt 78.7 kg
[~2022-10-23 12:57] MED LIST changes: +ACET-683; +ACET-716 PO; +AMOX500C; +PRED20TA; +PROP10TA56; +RIME75TA
[2022-10-23 14:35] LABS: BASO # 0.1 10^3/uL (0.0-0.2); BASO % 0.3 % (0.0-1.0); EOS # 0.1 10^3/uL (0.0-0.5); EOS % 0.7 % (0.0-3.0); HEMATOCRIT 45.8 % (36.0-47.0); HEMOGLOBIN 14.9 g/dl (12.0-15.5); LYMPH # 2.2 10^3/uL (1.5-5.0); LYMPH % 13.1 % (24.0-44.0); MEAN CORPUSCULAR HEMOGLOBIN 27.6 pg (27.0-33.0); MEAN CORPUSCULAR HGB CONC 32.5 g/dl (32.0-36.5); MONO # 0.8 10^3/uL (0.0-0.8); MONO % 4.8 % (2.0-8.0); NEUTROPHILS # 13.4 10^3/uL (1.5-8.5); NEUTROPHILS % 80.3 % (36.0-66.0); PLATELET COUNT, AUTOMATED 410 10^3/uL (150-450); RED BLOOD COUNT 5.39 10^6/uL (4.00-5.40); WHITE BLOOD COUNT 16.6 10^3/uL (4.0-10.0)
[2022-10-23 14:44] LABS: ERYTHROCYTE SEDIMENTATION RATE 19 mm/hr (0-20)
[2022-10-23 15:02] LABS: BLOOD UREA NITROGEN 12 MG/DL (9-23); CALCIUM LEVEL 9.5 MG/DL (8.5-10.1); CARBON DIOXIDE LEVEL 28 MMOL/L (20-31); CHLORIDE LEVEL 104 MMOL/L (98-107); CK-MB VALUE MASS < 1.0 NG/ML (<3.6); CPK CREATINE PHOSPHOKINASE 49 U/L (34-145); CREATININE FOR GFR 0.79 MG/DL (0.55-1.30); GLOMERULAR FILTRATION RATE > 60.0 (>60); GLUCOSE, FASTING 90 MG/DL (60-100); MB/CK RELATIVE INDEX 2.04 (< OR =4); POTASSIUM SERUM 4.5 MMOL/L (3.5-5.1); SODIUM LEVEL 139 MMOL/L (136-145)
[2022-10-23 15:04] LABS: THYROID STIMULATING HORMONE 1.103 uIU/ML (0.55-4.78)
[2022-10-23] MEDS ORDERED: KETOROLAC 30 MG/ML 1ML VIAL IV ONE (17:35)
[2022-10-23] MEDS ORDERED: METOCLOPRAMIDE INJ 10MG/2ML VIAL IV ONE (17:35)
[2022-10-23] MEDS ORDERED: IPRATROPIUM 0.5MG/ALBUTEROL 2.5MG INH SOL UD 3ML (DUONEB) NEB PRN (17:35)
[2022-10-23] MEDS ORDERED: NS 1,000 ML IV ONE (17:35)
[2022-10-23] MEDS ORDERED: dexAMETHasone 20MG/5ML VIAL IV ONE (17:35)
[2022-10-23] MEDS ORDERED: BENZONATATE 100MG CAPSULE PO ONE (17:35)
[2022-10-23 19:18] LABS: CK-MB VALUE MASS < 1.0 NG/ML (<3.6)
[2022-10-23 19:20] LABS: CPK CREATINE PHOSPHOKINASE 45 U/L (34-145); MB/CK RELATIVE INDEX 2.22 (< OR =4)
[2022-10-23] MEDS ORDERED: REGL10TA6 PO (20:10)
[2022-10-23] MEDS ORDERED: BENZ200C70 PO (20:10)
[2022-10-23] MEDS ORDERED: ALBU8.5H INH (20:10)
[2022-10-23 20:36] VITALS: BP 148/85; TEMP 97.3; O2SAT 98
== END 2022-10-23 20:39 | disposition home or self-care (01) ==
LOC: M ED 12:57
DX: R06.00 Dyspnea, unspecified (principal); R11.2 Nausea with vomiting, unspecified; R19.7 Diarrhea, unspecified; R00.0 Tachycardia, unspecified; I10 Essential (primary) hypertension; G43.909 Migraine, unspecified, not intractable, without status migrainosus; Z88.5 Allergy status to narcotic agent; Z88.8 Allergy status to other drugs, medicaments and biological substances; Z79.52 Long term (current) use of systemic steroids; Z79.899 Other long term (current) drug therapy
CPT/HCPCS: 71045; 80048; 82550; 82553; 83605; 84443; 85025; 85379; 85652; 86140; 87040; 87486; 87581; 87633; 87798; 93005; 96361; 96374; 96375; 99284; J1100; J1885; J2765

== ENCOUNTER → 2022-11-10 | Outpatient (REF) | payer OTHER ==
[~2022-11-10] MED LIST changes: +ALBU8.5H INH; +BENZ200C70 PO; +REGL10TA6 PO
[2022-11-10 13:38] LABS: BASO % 0.4 % (0.0-1.0); EOS # 0.3 10^3/uL (0.0-0.5); EOS % 3.9 % (0.0-3.0); HEMATOCRIT 37.3 % (36.0-47.0); HEMOGLOBIN 12.1 g/dl (12.0-15.5); LYMPH # 2.3 10^3/uL (1.5-5.0); LYMPH % 31.1 % (24.0-44.0); MEAN CORPUSCULAR HEMOGLOBIN 28.5 pg (27.0-33.0); MEAN CORPUSCULAR HGB CONC 32.4 g/dl (32.0-36.5); MEAN CORPUSCULAR VOLUME 87.8 fl (80.0-96.0); MONO # 0.4 10^3/uL (0.0-0.8); MONO % 6.1 % (2.0-8.0); NEUTROPHILS # 4.2 10^3/uL (1.5-8.5); NEUTROPHILS % 58.2 % (36.0-66.0); PLATELET COUNT, AUTOMATED 286 10^3/uL (150-450); RED BLOOD COUNT 4.25 10^6/uL (4.00-5.40); WHITE BLOOD COUNT 7.2 10^3/uL (4.0-10.0)
== END ==
LOC: M SFHCADAM 10:14
PROVIDERS: ATTEND Physician Assistant
DX: D72.829 Elevated white blood cell count, unspecified (principal)

== ENCOUNTER 2023-03-22 11:08 | Emergency (ER) | payer OTHER ==
[~2023-03-22] VITALS: Ht 157.5 cm; Wt 80.5 kg
[2023-03-22 13:02] LABS: BASO % 0.3 % (0.0-1.0); EOS % 0.5 % (0.0-3.0); HEMATOCRIT 39.9 % (36.0-47.0); HEMOGLOBIN 13.1 g/dl (12.0-15.5); LYMPH # 1.9 10^3/uL (1.5-5.0); MEAN CORPUSCULAR HEMOGLOBIN 27.7 pg (27.0-33.0); MEAN CORPUSCULAR HGB CONC 32.8 g/dl (32.0-36.5); MEAN CORPUSCULAR VOLUME 84.4 fl (80.0-96.0); MONO # 0.6 10^3/uL (0.0-0.8); MONO % 6.3 % (2.0-8.0); NEUTROPHILS # 6.2 10^3/uL (1.5-8.5); NEUTROPHILS % 70.7 % (36.0-66.0); PLATELET COUNT, AUTOMATED 236 10^3/uL (150-450); RED BLOOD COUNT 4.73 10^6/uL (4.00-5.40); WHITE BLOOD COUNT 8.8 10^3/uL (4.0-10.0)
[2023-03-22 13:27] LABS: BLOOD UREA NITROGEN 7 MG/DL (9-23); CALCIUM LEVEL 8.6 MG/DL (8.5-10.1); CARBON DIOXIDE LEVEL 25 MMOL/L (20-31); CHLORIDE LEVEL 108 MMOL/L (98-107); CREATININE FOR GFR 0.63 MG/DL (0.55-1.30); GLOMERULAR FILTRATION RATE > 60.0 (>60); GLUCOSE, FASTING 76 MG/DL (60-100); SODIUM LEVEL 138 MMOL/L (136-145)
[2023-03-22 13:41] LABS: HCG, SERUM QUANTITATIVE 96366.6 MIU/ML (<4.2)
[2023-03-22] MEDS ORDERED: NS 1,000 ML IV ONE (13:55)
[2023-03-22] MEDS ORDERED: UNIS25TA3 PO (15:04)
[2023-03-22] MEDS ORDERED: PYRI25TA2 PO (15:04)
[2023-03-22 15:19] VITALS: BP 129/82; TEMP 98; O2SAT 100
== END 2023-03-22 15:21 | disposition home or self-care (01) ==
LOC: M ED 11:08
DX: O21.9 Vomiting of pregnancy, unspecified (principal); O20.0 Threatened abortion; O46.91 Antepartum hemorrhage, unspecified, first trimester; Z88.5 Allergy status to narcotic agent; Z88.8 Allergy status to other drugs, medicaments and biological substances; Z3A.01 Less than 8 weeks gestation of pregnancy; Z79.52 Long term (current) use of systemic steroids; Z79.899 Other long term (current) drug therapy

== ENCOUNTER 2023-04-13 14:57 | Emergency (ER) | payer OTHER ==
[~2023-04-13] VITALS: Ht 157.5 cm; Wt 76.2 kg
[~2023-04-13 14:57] MED LIST changes: +PYRI25TA2 PO; +UNIS25TA3 PO
[2023-04-13] MEDS ORDERED: ONDA4TAB6 (15:08)
[2023-04-13] MEDS ORDERED: VENL150C43 (15:51)
[2023-04-13] MEDS ORDERED: METOCLOPRAMIDE INJ 10MG/2ML VIAL IV ONE (16:30)
[2023-04-13] MEDS ORDERED: NS 1,000 ML IV ONE (16:30)
[2023-04-13 17:03] LABS: BASO % 0.2 % (0.0-1.0); HEMOGLOBIN 13.5 g/dl (12.0-15.5); LYMPH # 0.7 10^3/uL (1.5-5.0); MEAN CORPUSCULAR HEMOGLOBIN 28.1 pg (27.0-33.0); MEAN CORPUSCULAR HGB CONC 33.8 g/dl (32.0-36.5); MEAN CORPUSCULAR VOLUME 83.2 fl (80.0-96.0); MONO # 0.4 10^3/uL (0.0-0.8); MONO % 5.6 % (2.0-8.0); NEUTROPHILS # 5.3 10^3/uL (1.5-8.5); NEUTROPHILS % 81.3 % (36.0-66.0); PLATELET COUNT, AUTOMATED 186 10^3/uL (150-450); RED BLOOD COUNT 4.81 10^6/uL (4.00-5.40); WHITE BLOOD COUNT 6.5 10^3/uL (4.0-10.0)
[2023-04-13 17:22] LABS: LIPASE 28 U/L (12-53)
[2023-04-13 17:24] LABS: ALBUMIN 3.6 G/DL (3.2-5.2); ALKALINE PHOSPHATASE 66 U/L (46-116); ALT/SGPT 39 U/L (7.0-40); AST/SGOT 34 U/L (<34); BILIRUBIN,DIRECT 0.2 MG/DL (<0.4); BILIRUBIN,TOTAL 0.7 MG/DL (0.3-1.2); BLOOD UREA NITROGEN 7 MG/DL (9-23); CALCIUM LEVEL 8.7 MG/DL (8.5-10.1); CARBON DIOXIDE LEVEL 24 MMOL/L (20-31); CHLORIDE LEVEL 104 MMOL/L (98-107); CREATININE FOR GFR 0.57 MG/DL (0.55-1.30); GLOMERULAR FILTRATION RATE > 60.0 (>60); GLUCOSE, FASTING 91 MG/DL (60-100); POTASSIUM SERUM 3.2 MMOL/L (3.5-5.1); SODIUM LEVEL 137 MMOL/L (136-145); TOTAL PROTEIN 7.6 G/DL (5.7-8.2)
[2023-04-13] MEDS ORDERED: OSELTAMIVIR PHOSPHATE 75 MG CAP (TAMIFLU) PO ONE (18:00)
[2023-04-13] MEDS ORDERED: ONDANSETRON 4MG 2ML VIAL IV ONE (18:05)
[2023-04-13 18:50] VITALS: BP 145/73; TEMP 97.6; O2SAT 97
[2023-04-13] MEDS ORDERED: OSEL75CA PO (19:02)
== END 2023-04-13 19:18 | disposition home or self-care (01) ==
LOC: M ED 14:57
DX: O99.511 Diseases of the respiratory system complicating pregnancy, first trimester (principal); O21.1 Hyperemesis gravidarum with metabolic disturbance; I10 Essential (primary) hypertension; F12.10 Cannabis abuse, uncomplicated; Z88.8 Allergy status to other drugs, medicaments and biological substances; Z79.1 Long term (current) use of non-steroidal anti-inflammatories (NSAID); Z79.899 Other long term (current) drug therapy; Z3A.10 10 weeks gestation of pregnancy
CPT/HCPCS: 80048; 80076; 83690; 85025; 87486; 87581; 87633; 87798; 96361; 96374; 96375; 99284; J2405; J2765

== ENCOUNTER → 2023-04-14 | Outpatient (CLI) | payer OTHER ==
[~2023-04-14] MED LIST changes: +ONDA4TAB6; +OSEL75CA PO
[2023-04-14 17:34] LABS: HEMATOCRIT 38.9 % (36.0-47.0); HEMOGLOBIN 13.3 g/dl (12.0-15.5); MEAN CORPUSCULAR HEMOGLOBIN 28.5 pg (27.0-33.0); MEAN CORPUSCULAR HGB CONC 34.2 g/dl (32.0-36.5); MEAN CORPUSCULAR VOLUME 83.3 fl (80.0-96.0); PLATELET COUNT, AUTOMATED 186 10^3/uL (150-450); RED BLOOD COUNT 4.67 10^6/uL (4.00-5.40); WHITE BLOOD COUNT 5.2 10^3/uL (4.0-10.0)
[2023-04-14 17:57] LABS: URIC ACID 5.6 MG/DL (3.1-7.8)
[2023-04-14 18:00] LABS: LDH LACTATE DEHYDROGENASE 170 U/L (120-246)
[2023-04-14 18:01] LABS: ALT/SGPT 46 U/L (7.0-40); AST/SGOT 27 U/L (<34); BILIRUBIN,TOTAL 0.8 MG/DL (0.3-1.2); CREATININE FOR GFR 0.58 MG/DL (0.55-1.30); GLOMERULAR FILTRATION RATE > 60.0 (>60)
[2023-04-14 18:33] LABS: HIV 1&2 SCREEN NEGATIVE (NEGATIVE)
[2023-04-14 18:42] LABS: HEPATITIS C VIRUS ABY INDEX 0.04 INDEX (<0.8)
== END ==
LOC: M PLALAB 15:32
PROVIDERS: ATTEND Advanced Practice Midwife
DX: Z84.81 Family history of carrier of genetic disease (principal); Z34.80 Encounter for supervision of other normal pregnancy, unspecified trimester

== ENCOUNTER → 2023-05-12 | Outpatient (CLI) | payer OTHER ==
[2023-05-12 14:13] LABS: CREATININE,RANDOM URINE 143.6 MG/DL
[2023-05-12 14:15] LABS: TOTAL PROTEIN,RANDOM URINE < 6.0 MG/DL (0.0-14.0)
[2023-05-12 14:56] LABS: GC DNA AMPLIFICATION NEGATIVE (NEGATIVE)
== END ==
LOC: M PLALAB 09:44
PROVIDERS: ATTEND Advanced Practice Midwife
DX: O09.299 Supervision of pregnancy with other poor reproductive or obstetric history, unspecified trimester (principal)

== ENCOUNTER → 2023-06-16 | Outpatient (CLI) | payer OTHER | LOC: M WHC 12:10 | PROVIDERS: ATTEND Advanced Practice Midwife | DX: Z34.82 Encounter for supervision of other normal pregnancy, second trimester (principal); Z3A.19 19 weeks gestation of pregnancy ==

== ENCOUNTER → 2023-07-07 | Outpatient (CLI) | payer OTHER | LOC: M PLALAB 13:38 | PROVIDERS: ATTEND Advanced Practice Midwife | DX: O09.292 Supervision of pregnancy with other poor reproductive or obstetric history, second trimester (principal) ==

== ENCOUNTER → 2023-08-04 | Outpatient (CLI) | payer OTHER ==
[2023-08-04 14:54] LABS: HEMATOCRIT 33.7 % (36.0-47.0); HEMOGLOBIN 11.2 g/dl (12.0-15.5); MEAN CORPUSCULAR HEMOGLOBIN 29.6 pg (27.0-33.0); MEAN CORPUSCULAR HGB CONC 33.2 g/dl (32.0-36.5); MEAN CORPUSCULAR VOLUME 88.9 fl (80.0-96.0); PLATELET COUNT, AUTOMATED 220 10^3/uL (150-450); RED BLOOD COUNT 3.79 10^6/uL (4.00-5.40); WHITE BLOOD COUNT 8.8 10^3/uL (4.0-10.0)
== END ==
LOC: M PLALAB 09:55
PROVIDERS: ATTEND Advanced Practice Midwife
DX: O09.292 Supervision of pregnancy with other poor reproductive or obstetric history, second trimester (principal)

== ENCOUNTER → 2023-09-21 | Outpatient (CLI) | payer OTHER ==
[~2023-09-21] MED LIST changes: +ONDA-282; -ONDA4TAB6
== END ==
LOC: M RAD 15:11
PROVIDERS: ATTEND Obstetrics & Gynecology
DX: I86.2 Pelvic varices (principal); K40.90 Unilateral inguinal hernia, without obstruction or gangrene, not specified as recurrent

== ENCOUNTER → 2023-10-05 | Outpatient (REF) | payer OTHER | LOC: M SFHCWAGY 13:30 | PROVIDERS: ATTEND Obstetrics & Gynecology | DX: Z36.89 Encounter for other specified antenatal screening (principal); Z3A.35 35 weeks gestation of pregnancy ==

== ENCOUNTER → 2023-10-12 | Outpatient (CLI) | payer OTHER ==
[2023-10-12 15:19] LABS: HEMATOCRIT 33.9 % (36.0-47.0); HEMOGLOBIN 10.8 g/dl (12.0-15.5); MEAN CORPUSCULAR HEMOGLOBIN 27.6 pg (27.0-33.0); MEAN CORPUSCULAR HGB CONC 31.9 g/dl (32.0-36.5); MEAN CORPUSCULAR VOLUME 86.5 fl (80.0-96.0); PLATELET COUNT, AUTOMATED 181 10^3/uL (150-450); RED BLOOD COUNT 3.92 10^6/uL (4.00-5.40); URIC ACID 4.3 MG/DL (3.1-7.8); WHITE BLOOD COUNT 9.5 10^3/uL (4.0-10.0)
[2023-10-12 15:21] LABS: LDH LACTATE DEHYDROGENASE 171 U/L (120-246)
[2023-10-12 15:22] LABS: ALT/SGPT 15 U/L (7.0-40); AST/SGOT 15 U/L (<34); BILIRUBIN,TOTAL 1.1 MG/DL (0.3-1.2); CREATININE,RANDOM URINE 105.6 MG/DL; GLOMERULAR FILTRATION RATE > 60.0 (>60)
== END ==
LOC: M PLALAB 11:53
PROVIDERS: ATTEND Advanced Practice Midwife
DX: O13.9 Gestational [pregnancy-induced] hypertension without significant proteinuria, unspecified trimester (principal); Z3A.00 Weeks of gestation of pregnancy not specified

== ENCOUNTER 2023-10-17 08:06 | Inpatient (IN) | payer OTHER ==
[2023-10-17] VITALS (22 sets, daily range): BP systolic 123–144; BP diastolic 65–94; O2SAT 99
[~2023-10-17] VITALS: Ht 157.5 cm; Wt 81.6 kg
[2023-10-17] MEDS ORDERED: VENL75CA47 PO (08:24)
[2023-10-17] MEDS ORDERED: HOME MED LIST COMPLETE! XX SCH (08:25)
[2023-10-17] MEDS ORDERED: PENICILLIN G POTASSIUM 5 MU IV 5 MU in D5W MINI-BAG PLUS 100 ML IV STA (08:55)
[2023-10-17] MEDS ORDERED: OXYTOCIN INJ 10UNITS/ML 1ML VIAL IM PRN (08:55)
[2023-10-17] MEDS ORDERED: CARBOPROST TROMETHAMINE 250 MCG/ML AMP IM PRN (08:55)
[2023-10-17] MEDS ORDERED: OXYTOCIN DRIP 30 UNITS in IV 1 EA IV PRN (08:55)
[2023-10-17] MEDS ORDERED: TRANEXAMIC ACID INJection 1,000 MG in NS 100 ML IV PRN (08:55)
[2023-10-17] MEDS ORDERED: LIDOCAINE 1% MDV 20ML VIAL INFIL PRN (08:55)
[2023-10-17] MEDS: miSOPROStol 50MCG 1/2 TABLET PO SCH (09:30)
[2023-10-17] MEDS: ONDANSETRON 4MG 2ML VIAL IV PRN (09:30)
[2023-10-17 09:34] LABS: HEMATOCRIT 32.7 % (36.0-47.0); HEMOGLOBIN 10.8 g/dl (12.0-15.5); MEAN CORPUSCULAR HEMOGLOBIN 28.1 pg (27.0-33.0); MEAN CORPUSCULAR VOLUME 84.9 fl (80.0-96.0); PLATELET COUNT, AUTOMATED 187 10^3/uL (150-450); RED BLOOD COUNT 3.85 10^6/uL (4.00-5.40); WHITE BLOOD COUNT 8.8 10^3/uL (4.0-10.0)
[2023-10-17 10:02] LABS: TOTAL PROTEIN,RANDOM URINE 13.5 MG/DL (0.0-14.0)
[2023-10-17 10:05] LABS: URIC ACID 4.1 MG/DL (3.1-7.8)
[2023-10-17 10:07] LABS: CREATININE,RANDOM URINE 102.3 MG/DL; LDH LACTATE DEHYDROGENASE 164 U/L (120-246)
[2023-10-17 10:08] LABS: ALT/SGPT 13 U/L (7.0-40); AST/SGOT 12 U/L (<34); BILIRUBIN,TOTAL 1.2 MG/DL (0.3-1.2); CREATININE FOR GFR 0.68 MG/DL (0.55-1.30); GLOMERULAR FILTRATION RATE > 60.0 (>60)
[2023-10-17] MEDS ORDERED: PEN G POT 3,000,000 UNIT/50 ML 3,000,000 UNIT in IV 1 EA IV SCH (12:55)
[2023-10-17 13:32] LABS: HEPATITIS C VIRUS ABY INDEX < 0.02 INDEX (<0.8)
[2023-10-17] MEDS: PENICILLIN G POTASSIUM 5 MU IV 5 MU in D5W MINI-BAG PLUS 100 ML IV STA (18:13)
[2023-10-17] MEDS: LR 1,000 ML IV SCH (18:13)
[2023-10-17] MEDS: OXYTOCIN DRIP 30 UNITS in IV 1 EA IV SCH (18:20)
[2023-10-17] MEDS: PEN G POT 3,000,000 UNIT/50 ML 3,000,000 UNIT in IV 1 EA IV SCH (23:20)
[2023-10-18] VITALS (16 sets, daily range): BP systolic 114–155; BP diastolic 68–93; O2SAT 97
[2023-10-18] MEDS: OMEPRAZOLE 20MG CAP PO ONE (00:26)
[2023-10-18] MEDS: BUTORPHANOL 2 MG/ML 1ML VIAL IV ONE (00:27)
[2023-10-18] MEDS: OXYTOCIN DRIP 30 UNITS in IV 1 EA IV PRN (04:14)
[2023-10-18] MEDS ORDERED: IBUPROFEN 800 MG TAB PO PRN (05:20)
[2023-10-18] MEDS ORDERED: DOCUSATE SODIUM 100MG CAPSULE PO PRN (05:20)
[2023-10-18] MEDS ORDERED: IBUPROFEN 600MG TAB PO PRN (05:20)
[2023-10-18] MEDS ORDERED: METHYLERGONOVINE MALEATE 0.2 MG TAB PO PRN (05:20)
[2023-10-18] MEDS: PRENATAL VITAMINS CHEWABLE TABLET PO SCH (09:21)
[2023-10-18] MEDS: SCOPOLAMINE 1MG TRANSDERMAL PATCH TOP SCH (09:22)
[2023-10-18] MEDS: DIBUCAINE 1% OINTMENT 30GM TOP PRN (19:46)
[2023-10-18] MEDS: ACETAMINOPHEN TAB 650MG DOSE (2X325MG) PO PRN (19:46)
[2023-10-19 06:00] VITALS: BP 119/68; O2SAT 98
[2023-10-19] MEDS: ACETAMINOPHEN 500 MG TAB PO PRN (10:41)
[2023-10-19] MEDS: MEASLES,MUMPS,RUBELLA VACCINE INJ (MMR-II) SC.IMMUN ONE (12:23)
[2023-10-19] MEDS: RHO(D) IMMUNE GLOBULIN/MALTOSE 500MCG(2500IU)/2.2ML VIAL (WINRHO) IM SCH (12:23)
== END 2023-10-19 16:45 | disposition home or self-care (01) | DRG 560 ==
LOC: M LDI 08:06 → M OBS 10-18 06:20
PROVIDERS: ADMIT Advanced Practice Midwife; ATTEND Advanced Practice Midwife
PROC: 3E033VJ Introduction of Other Hormone into Peripheral Vein, Percutaneous Approach (ICD-10-PCS; 2023-10-17)
PROC: 3E0P7VZ Introduction of Hormone into Female Reproductive, Via Natural or Artificial Opening (ICD-10-PCS; 2023-10-17)
PROC: 10E0XZZ Delivery of Products of Conception, External Approach (ICD-10-PCS; principal; 2023-10-18)
DX: O14.94 Unspecified pre-eclampsia, complicating childbirth (principal); Z87.891 Personal history of nicotine dependence; Z37.0 Single live birth; Z3A.37 37 weeks gestation of pregnancy

== ENCOUNTER 2023-10-28 11:14 | Emergency (ER) | payer OTHER ==
[~2023-10-28] VITALS: Ht 157.5 cm; Wt 68.9 kg
[~2023-10-28 11:14] MED LIST changes: +VENL75CA47 PO
[2023-10-28] MEDS ORDERED: EFFE150C3 PO (11:36)
[2023-10-28 11:47] LABS: BASO % 0.5 % (0.0-1.0); EOS # 0.1 10^3/uL (0.0-0.5); EOS % 0.8 % (0.0-3.0); HEMATOCRIT 40.9 % (36.0-47.0); HEMOGLOBIN 13.2 g/dl (12.0-15.5); LYMPH # 1.9 10^3/uL (1.5-5.0); LYMPH % 25.3 % (24.0-44.0); MEAN CORPUSCULAR HEMOGLOBIN 27.2 pg (27.0-33.0); MEAN CORPUSCULAR HGB CONC 32.3 g/dl (32.0-36.5); MEAN CORPUSCULAR VOLUME 84.3 fl (80.0-96.0); MONO # 0.3 10^3/uL (0.0-0.8); NEUTROPHILS # 5.1 10^3/uL (1.5-8.5); NEUTROPHILS % 69.3 % (36.0-66.0); PLATELET COUNT, AUTOMATED 303 10^3/uL (150-450); RED BLOOD COUNT 4.85 10^6/uL (4.00-5.40); WHITE BLOOD COUNT 7.4 10^3/uL (4.0-10.0)
[2023-10-28 11:59] LABS: INR 1.05; PARTIAL THROMBOPLASTIN TIME 26.1 SECONDS (24.8-34.2); PROTHROMBIN TIME 13.4 SECONDS (12.5-14.5)
[2023-10-28 12:14] LABS: BLOOD UREA NITROGEN 10 MG/DL (9-23); CALCIUM LEVEL 9.4 MG/DL (8.5-10.1); CARBON DIOXIDE LEVEL 28 MMOL/L (20-31); CHLORIDE LEVEL 107 MMOL/L (98-107); GLOMERULAR FILTRATION RATE > 60.0 (>60); GLUCOSE, FASTING 101 MG/DL (60-100); POTASSIUM SERUM 4.2 MMOL/L (3.5-5.1); SODIUM LEVEL 138 MMOL/L (136-145)
[2023-10-28] MEDS: IBUPROFEN 600MG TAB PO ONE (13:39)
[2023-10-28] MEDS: NS 1,000 ML IV ONE (13:39)
[2023-10-28 15:46] VITALS: BP 118/79; TEMP 98.2; O2SAT 100
== END 2023-10-28 16:08 | disposition home or self-care (01) ==
LOC: M ED 11:14 → EDUNIT# 11:14 → EDBD 11:14 → M ED 16:08
DX: I95.1 Orthostatic hypotension (principal); I10 Essential (primary) hypertension; G43.909 Migraine, unspecified, not intractable, without status migrainosus; Z90.89 Acquired absence of other organs; Z79.899 Other long term (current) drug therapy

== ENCOUNTER → 2024-07-25 | Outpatient (REF) | payer OTHER ==
[~2024-07-25] MED LIST changes: +CORTOTSO; -CYCL5TAB PO; +CYCL5TAB4 PO; +EFFE150C3 PO; -NEOM1SOL13
[2024-07-25 13:14] LABS: Trichomonas vaginalis (AMP) NOT DETECTED (NEGATIVE)
[2024-07-25 13:38] LABS: GC DNA AMPLIFICATION NEGATIVE (NEGATIVE)
[2024-07-27 16:38] LABS: HPV APTIMA Not Detected (Not Detected)
== END ==
LOC: M PLALAB 08:51
PROVIDERS: ATTEND Advanced Practice Midwife
DX: Z12.4 Encounter for screening for malignant neoplasm of cervix (principal)